=== PATIENT | male | born 2000 | race Caucasian/White ===

== ENCOUNTER 2022-01-29 03:06 | Emergency (ER) | payer OTHER, SELFPAY ==
[2022-01-29] MEDS ORDERED: Sodium Chloride 0.9% 1,000 ML ONE (03:34)
[2022-01-29] MEDS ORDERED: Ketorolac Tromethamine 30 MG/ML VIAL ONE ×2 (03:35→09:33)
[2022-01-29] MEDS ORDERED: Ondansetron PF 4 MG/2 ML Vial ONE (03:35)
[2022-01-29 03:37] LABS: #Basophils 0.1 thou/uL (0.0-0.2); #Eosinphils 0.1 thou/uL (0.0-0.7); #Lymphocytes 2.5 thou/uL (1.20-3.40); #Monocytes 1.2 thou/uL (0.11-0.59); #Neutrophils 15.3 thou/uL (1.40-6.50); %Basophils 0.7 % (0.0-1.0); %Eosinophils 0.6 % (0.0-10.0); %Lymphocytes 13.1 % (21.0-51.0); %Monocytes 6.3 % (0.0-10.0); %Neutrophils 79.2 % (42.0-75.0); Hemoglobin 15.8 g/dL (14.0-18.0); Mean Corpuscular HGB CONC 32.3 g/dL (32.0-36.0); Mean Corpuscular Hemoglobin 31.3 pg (27.0-31.0); Mean Corpuscular Volume 97.1 fL (78.0-98.0); Mean Platelet Volume 7.8 fL (7.4-10.4); Platelet Count 308 thou/uL (130-400); RBC Distribution Width 11.3 % (11.5-14.5); Red Blood Cell (RBC) Count 5.04 mill/uL (4.70-6.10); White Blood Cell (WBC) Count 19.3 thou/uL (4.8-10.8)
[2022-01-29] MEDS ORDERED: Morphine 4 MG/ML VIAL ONE ×2 (04:14→07:39)
[2022-01-29 04:15] LABS: ALT (SGPT) 64 U/L (8-55); AST (SGOT) 35 U/L (5-34); Albumin 4.5 g/dL (3.5-5.0); Alkaline Phosphatase 69 U/L (40-110); Anion Gap 11 mmol/L (10-20); BUN (Urea Nitrogen) 11 mg/dL (8.9-20.6); Calc. Creatinine Clearance 0 mL/min (70-130); Calcium 9.4 mg/dL (7.8-10.44); Carbon Dioxide 29 mmol/L (22-29); Chloride 104 mmol/L (98-107); Estimated GFR 78; Globulin 2.4 g/dL (2.4-3.5); Glucose 116 mg/dL (70-105); Lipase 19 U/L (8-78); Potassium 3.8 mmol/L (3.5-5.1); Protein, Total 6.9 g/dL (6.0-8.3); Sodium 140 mmol/L (136-145)
[2022-01-29] MEDS ORDERED: Piperacillin/Tazobactam 3.375 GM VIAL ONE (06:06)
[2022-01-29] MEDS ORDERED: Sodium Chloride 0.9% 100 ML ONE (06:06)
[2022-01-29 07:34] LABS: SARS-CoV-2 NAA Rapid Test Not Detected (NotDetected)
[2022-01-29] MEDS ORDERED: EPINEPHrine 1 MG/ML AMP ONE (09:03)
[2022-01-29] MEDS ORDERED: Bupivacaine PF 0.5% 30 ML VIAL ONE (09:03)
[2022-01-29] MEDS ORDERED: fentaNYL Citrate/PF 100 MCG/2 ML SYRINGE ONE (09:15)
[2022-01-29] MEDS ORDERED: Dexmedetomidine 200 MCG/2 ML VIAL ONE (09:15)
== END 2022-01-29 08:13 | disposition short-term general hospital (02) ==
LOC: MADERS 03:06
DX: K35.80 Unspecified acute appendicitis (principal); F17.220 Nicotine dependence, chewing tobacco, uncomplicated; Z20.822 Contact with and (suspected) exposure to COVID-19
CPT/HCPCS: 74176; 80053; 83690; 85025; 96361; 96365; 96375; 96376; J0171; J1885; J2270; J2405; J2543; J3490; J7050; S0020; U0002